=== PATIENT | male | born 1945 | race Caucasian/White ===

== ENCOUNTER 2018-03-01 13:57 | Observation (INO) | payer OTHER ==
[2018-03-01 14:32] LABS: PLATELET COUNT 189 10^3/uL (150-400)
--- NOTE | 2018-03-01 14:37 | EDPHY ---
HPI/HX/ROS/PE/MDM Narrative: CHIEF COMPLAINT: Chest pain HISTORY OF PRESENT ILLNESS: This patient is a 72 year old male with history of hyperlipidemia, type II diabetes mellitus arriving via private vehicle complaining of chest pain. This morning around 6am, he woke with pain in his left chest just under his ribcage. This is similar to prior instances he calls "muscle spasm" in his diaphragm. These usually resolve with deep breaths. Today, the discomfort has been ongoing for 8 hours. If he relaxes, the relieves slightly but does not completely resolve. When he takes a deep breath, the pain is exacerbated. It is localized to one area and does not radiate. No nausea or vomiting. He took four 81mg ASA prior to coming to the emergency department. The patient follows up at [facility] for his hyperlipidemia and is aware of increased risk of cardiac events given his medical history and became concerned regarding the persistent discomfort. He denies any history of clotting disorders in himself or his family. No fever, chills, shortness of breath, diaphoresis, palpitations, vomiting, diarrhea, urinary complaints, headache, lightheadedness. The patient reports he frequently takes long hikes at elevation without difficulty. It has been about 15 years since his last stress test. REVIEW OF SYSTEMS: A comprehensive 10 system review of systems is otherwise negative aside from elements mentioned in the history of present illness and medical decision making. PAST MEDICAL HISTORY: Hyperlipidemia, diabetes mellitus type II, SOCIAL HISTORY: . at bedside. Retired. Does not abuse tobacco, drugs, or alcohol. VITAL SIGNS: Reviewed by me GENERAL: Well-developed, well-nourished, resting comfortably in no respiratory distress. HEENT: Atraumatic. Eyes: No icterus, no injection. Mouth: moist mucous membranes. No erythema or lesions. Neck: supple with no adenopathy. LUNGS: Clear to auscultation bilaterally, no wheezes, rhonchi or rales. CARDIAC: Regular rate and rhythm, no rubs, murmurs or gallops. ABDOMEN: Soft, nontender, nondistended, bowel sounds normal. BACK: No CVA tenderness. EXTREMITIES: No trauma. No edema. Range of motion is normal throughout. NEURO: Alert and oriented, grossly nonfocal. SKIN: Warm and dry, no rash. PSYCHIATRIC: Normal mentation, no agitation. Portions of this note were transcribed by a medical reviewer. I personally performed a history, physical exam, medical decision making, and confirmed accuracy of information the transcribed note. ED Course: 72 y/o male presents with left-sided chest discomfort onset upon waking this morning. Exam largely unremarkable. Plan for EKG, chest x-ray, labs including CBC, chemistries, troponin, d-dimer. 12-LEAD EKG: Please see the full report in [facility]. My interpretation: Normal sinus rhythm 14:25 Trop 0.00 14:46 Reviewed CXR, negative for acute processes. D-dimer elevated at 1.11. Plan for CTA to rule out PE or other acute processes. 15:[address] Higuera, radiologist. CTA negative for PE. Incidental findings including evidence of CAD noted above in radiologist report. 16:00 Reassessed patient. Discussed imaging results. Discussed admission based on patient's cardiac risk factors and ongoing symptoms. He is amenable to this. 16:43 Spoke with hospitalist service. Dr. Hawkins accepts admission for left lower chest discomfort, hypercholesterolemia. MDM: After history and physical examination, the differential for chest pain was considered, including but not limited to, myocardial ischemia, acute coronary syndrome, pulmonary embolus, chest wall pain, pleural inflammation, gastrointestinal causes, and pulmonary infectious causes. - Data Points Imaging Results: Chest X-Ray 03/01/18 14:24 Impression: No evidence for acute cardiopulmonary abnormality. Chronic findings , as above. Dictated By: Junito Higuera MD Chest/Thorax CTA 03/01/18 14:58 Impression: 1. No evidence of thrombopulmonary embolic disease. 2. 3.1-cm mass right thyroid gland. Recommend ultrasound-guided fine needle aspiration. 3. 12.5-cm exophytic renal cortical cyst midpole right kidney incompletely visualized. Smaller renal cortical cyst off the superior pole of the left kidney. 4. Evidence of atherosclerotic disease in the coronary arteries. 5. Incidental aberrant right brachiocephalic artery. Results called and discussed with Sadia Greene MD on March 01, 2018 at 1553 hours. Dictated By: Junito Higuera MD Imaging: Discussed imaging studies w/ train caller Radiologist, I viewed and interpreted images myself Laboratory Results: Laboratory Results 03/01/18 14:10 03/01/18 14:10 Medications Given: Discontinued Medications Aspirin Buffered (Aspirin Ec) 81 mg PO DAILY [facility] Stop: 08/29/18 08:59 Last Admin: 03/02/18 08:25 Dose: 81 mg Colesevelam HCl (Welchol) 1,875 mg PO BIDMEAL [facility] Stop: 08/29/18 07:59 Last Admin: 03/02/18 08:25 Dose: 1,875 mg Ezetimibe (Zetia) 10 mg PO HS [facility] Stop: 08/28/18 20:59 Last Admin: 03/01/18 21:22 Dose: 10 mg Ferrous Sulfate (Ferrous Sulfate) 325 mg PO TID [facility] Stop: 08/29/18 08:59 Last Admin: 03/02/18 11:08 Dose: Not Given Glipizide (Glucotrol Xl) 10 mg PO DAILY [facility] Stop: 08/29/18 08:59 Last Admin: 03/02/18 11:09 Dose: Not Given Influenza Virus Vaccine Quadrival (Flulaval Quad [id number] (6mo+)) 0.5 ml IM .ONCE ONE Stop: 03/02/18 12:40 Last Admin: 03/02/18 13:28 Dose: 0.5 ml Insulin Human Lispro (Humalog Lispro) 0 unit SC TIDMEAL [facility] PRN Reason: Protocol Stop: 08/28/18 17:59 Last Admin: 03/01/18 18:45 Dose: Not Given Levothyroxine Sodium (Synthroid) 137 mcg PO DAILY06 [facility] Stop: 08/29/18 05:59 Last Admin: 03/02/18 05:41 Dose: 137 mcg Magnesium Oxide (Magnesium Oxide) 400 mg PO TID [facility] Stop: 08/28/18 21:59 Last Admin: 03/02/18 08:25 Dose: 400 mg Miscellaneous Medication (Ferrous Gluconate [Ferrous Gluconate]) 324 mg PO TID [facility] Stop: 08/28/18 21:59 Last Admin: 03/02/18 08:30 Dose: 324 mg Miscellaneous Medication (Glucotrol Xl 10 Mg (*)) 10 mg PO DAILY [facility] Stop: 08/29/18 08:59 Last Admin: 03/02/18 08:30 Dose: 10 mg Miscellaneous Medication (Jentadueto 2.5 Mg-1000 Mg Tab) 1 tab PO BIDMEAL [facility] Stop: 08/29/18 07:59 Last Admin: 03/02/18 08:31 Dose: Not Given Morphine Sulfate (Morphine) 2 mg IVP EDNOW ONE Stop: 03/01/18 16:50 Last Admin: 03/01/18 17:17 Dose: Not Given Niacin (Niaspan) 2,000 mg PO HS [facility] Stop: 08/28/18 20:59 Last Admin: 03/01/18 21:22 Dose: 2,000 mg Rosuvastatin Calcium (Crestor) 20 mg PO HS [facility] Stop: 08/28/18 20:59 Last Admin: 03/01/18 21:22 Dose: 20 mg Timolol Maleate (Timoptic 0.5%) 1 drops LEFTEYE DAILY [facility] Stop: 08/29/18 08:59 Last Admin: 03/02/18 08:47 Dose: 1 drop Point of Care Test Results: Chemistry 03/01/18 14:16 POC Troponin I 0.00 ng/mL ng/mL (0.00-0.08) General Time Seen by Provider: 03/01/18 14:15 Initial Vital Signs: Initial Vital Signs Temperature (C) 36.5 C 03/01/18 14:00 Heart Rate 73 03/01/18 14:00 Respiratory Rate 16 03/01/18 14:00 Blood Pressure 184/92 H 03/01/18 14:00 O2 Sat (%) 97 03/01/18 14:00 O2 Delivery Mode Room Air Allergies/Adverse Reactions: codeine Allergy (Verified 03/01/18 13:59) Home Medications: Medication Instructions Recorded Ascorbic Acid [Vitamin C 500 mg 500 mg PO DAILY@1800 03/01/18 (*)] Aspirin EC [Aspirin EC 81 mg (*)] 81 mg PO DAILY 03/01/18 Colesevelam HCl [Welchol (*)] 1,875 mg PO BIDMEAL 03/01/18 Ergocalciferol (Vitamin D2) 50,000 unit PO Q28D 03/01/18 [Vitamin D2] Evolocumab [Repatha Sureclick] 140 mg IJ Q14D 03/01/18 Ezetimibe [Zetia 10 MG (*)] 10 mg PO HS 03/01/18 Ferrous Gluconate 324 mg PO TID 03/01/18 Glucotrol XL 10 MG (*) 10 mg PO DAILY 03/01/18 Herbals/Supplements -Info Only 1 ea PO DAILY 03/01/18 Jentadueto 2.5 mg-1000 mg Tab 1 tab PO BIDMEAL 03/01/18 Levothyroxine [Synthroid 137 mcg 137 mcg PO DAILY06 03/01/18 (*)] Magnesium Oxide [Magnesium] 400 mg PO TID 03/01/18 Niacin ER [Niaspan 1000 mg (*)] 2,000 mg PO HS 03/01/18 Rosuvastatin Calcium [Crestor 20mg 20 mg PO HS 03/01/18 (*)] Timolol 0.5% [TIMOPTIC 0.5% (*)] 1 drops LEFTEYE DAILY 03/01/18 Departure - Departure Disposition: [facility] Clinical Impression: Chest discomfort, Hypercholesteremia Condition: Good Report Scribed for: Sadia Greene Report Scribed by: Hoa Feldman Date of Report: 03/01/18 Time of Report: 14:37
[2018-03-01] MEDS ORDERED: IOPAMIDOL (ISOVUE 370) 100 ML BTL IV ONE (15:00)
[2018-03-01] MEDS ORDERED: ONDANSETRON 4 MG/2 ML VIAL IVP PRN (17:14)
[2018-03-01] MEDS ORDERED: ACETAMINOPHEN 325 MG TAB PO PRN (17:14)
[2018-03-01] MEDS ORDERED: NITROGLYCERIN 0.4 MG BTL SL PRN (17:14)
--- NOTE | 2018-03-01 17:19 | PDGENHP ---
History and Physical - Chief Complaint chest pain - History of Present Illness 72yo M with familial hypertriglyceridemia, T2DM presents with left sided chest pain. First noticed it around 6am after waking up but it did not wake him up from sleep. Maximum intensity only a 3-4/10. Sharp pain, doesn't radiate, no associated nausea, dyspnea, diaphoresis. Doesn't change with exertion or position. Worsens with inspiration. No rash on chest, not worse with palpation. No palpitations, leg swelling, presyncope/syncope. He has been doing quite a bit of home renovation and hasn't had any chest pain with these activities. Has had similar symptoms before but usually goes away with inspiration. Decided to come to ED after it didn't go away throughout the day. This pain has now resolved. In the ED, had non-ischemic ECG and troponin. D-dimer elevated so CTA ordered which was negative for PE. Given his risk factors, he is being admitted for ACS rule out and likely stress testing. Case discussed with ED physician Sadia Greene. History Information - Allergies/Home Medication List Allergies/Adverse Reactions: codeine Allergy (Verified 03/01/18 13:59) Home Medications: Colesevelam HCl 03/01/18 [Last Taken Unknown] Crestor 03/01/18 [Last Taken Unknown] Evolocumab [Repatha Sureclick] 03/01/18 [Last Taken Unknown] Glucotrol Xl 03/01/18 [Last Taken Unknown] Jentadueto 2.5 mg-1000 mg Tab 03/01/18 [Last Taken Unknown] Niacin 03/01/18 [Last Taken Unknown] Synthroid 137 mcg (*) 03/01/18 [Last Taken Unknown] Timolol Maleate 03/01/18 [Last Taken Unknown] Vitamin D2 03/01/18 [Last Taken Unknown] Zetia 10 MG (*) 03/01/18 [Last Taken Unknown] I have personally reviewed and updated: family history, medical history, social history, surgical history - Past Medical History Additional medical history: familial hypertriglyceridemia (followed at [facility], most recent LDL 15), T2DM (diagnosed about 10 years ago, never on insulin), hypothyroidism - Surgical History Reports: no pertinent surgical hx - Family History Additional family history: father - [place] at 75, uncle - [place] in late 50s, mother - CVA - Social History Smoking Status: Never smoked Alcohol Use: Rarely Drug Use: None Additional social history: Retired. Lives with . Splits time living in [place] and [place]. Has been in [place] since December. Enjoys [place] hunting. Review of Systems Review of Systems: ROS: 10pt was reviewed & negative except for what was stated in HPI & below Physical Exam Physical Exam: Temp Pulse Resp BP Pulse Ox 36.5 C 63 18 156/94 H 97 03/01/18 14:00 03/01/18 16:53 03/01/18 16:53 03/01/18 16:53 03/01/18 16:53 Constitutional: no apparent distress, appears nourished, not in pain Eyes: PERRL, anicteric sclera, EOMI Ears, Nose, Mouth, Throat: moist mucous membranes, hearing normal, ears appear normal, no oral mucosal ulcers Cardiovascular: regular rate and rhythym, no murmur, rub, or gallop, pulses symmetric bilaterally, No JVD, No carotid bruit, No edema Respiratory: no respiratory distress, no rales or rhonchi, clear to auscultation Gastrointestinal: normoactive bowel sounds, soft, non-tender abdomen, no palpable masses Skin: warm, normal color, no rashes or abrasions, no fluctuance, no induration, No mottled Musculoskeletal: full muscle strength, no muscle tenderness, normal joint ROM, no joint effusions Neurologic: AAOx3 Psychiatric: interacting appropriately, not anxious, not encephalopathic, thought process linear Lab Data & Imaging Review 03/01/18 14:10 03/01/18 14:10 WBC 7.78 10^3/uL (3.80-9.50) 03/01/18 14:10 RBC 4.20 10^6/uL (4.40-6.38) L 03/01/18 14:10 Hgb 13.4 g/dL (13.7-17.5) L 03/01/18 14:10 Hct 39.8 % (40.0-51.0) L 03/01/18 14:10 MCV 94.8 fL (81.5-99.8) 03/01/18 14:10 MCH 31.9 pg (27.9-34.1) 03/01/18 14:10 MCHC 33.7 g/dL (32.4-36.7) 03/01/18 14:10 RDW 13.4 % (11.5-15.2) 03/01/18 14:10 Plt Count 189 10^3/uL (150-400) 03/01/18 14:10 MPV 8.9 fL (8.7-11.7) 03/01/18 14:10 Neut % (Auto) 67.9 % (39.3-74.2) 03/01/18 14:10 Lymph % (Auto) 22.5 % (15.0-45.0) 03/01/18 14:10 Hayes % (Auto) 8.2 % (4.5-13.0) 03/01/18 14:10 Eos % (Auto) 1.0 % (0.6-7.6) 03/01/18 14:10 Baso % (Auto) 0.3 % (0.3-1.7) 03/01/18 14:10 Nucleat RBC Rel Count 0.0 % (0.0-0.2) 03/01/18 14:10 Absolute Neuts (auto) 5.28 10^3/uL (1.70-6.50) 03/01/18 14:10 Absolute Lymphs (auto) 1.75 10^3/uL (1.00-3.00) 03/01/18 14:10 Absolute Monos (auto) 0.64 10^3/uL (0.30-0.80) 03/01/18 14:10 Absolute Eos (auto) 0.08 10^3/uL (0.03-0.40) 03/01/18 14:10 Absolute Basos (auto) 0.02 10^3/uL (0.02-0.10) 03/01/18 14:10 Absolute Nucleated RBC 0.00 10^3/uL (0-0.01) 03/01/18 14:10 Immature Gran % 0.1 % (0.0-1.1) 03/01/18 14:10 Immature Gran # 0.01 10^3/uL (0.00-0.10) 03/01/18 14:10 D-Dimer 1.11 ug/mLFEU (0.00-0.50) H 03/01/18 14:10 Sodium 139 mEq/L (135-145) 03/01/18 14:10 Potassium 4.2 mEq/L (3.3-5.0) 03/01/18 14:10 Chloride 104 mEq/L (97-110) 03/01/18 14:10 Carbon Dioxide 28 mEq/l (22-31) 03/01/18 14:10 Anion Gap 7 mEq/L (8-16) L 03/01/18 14:10 BUN 15 mg/dL (7-23) 03/01/18 14:10 Creatinine 1.0 mg/dL (0.7-1.3) 03/01/18 14:10 Estimated GFR > 60 03/01/18 14:10 Glucose 124 mg/dL (70-100) H 03/01/18 14:10 Calcium 9.8 mg/dL (8.5-10.4) 03/01/18 14:10 POC Troponin I 0.00 ng/mL (0.00-0.08) 03/01/18 14:16 Visualized and Interpreted imaging results: Yes Interpretation: CXR: no infiltrate or pleural effusion, tortuous aorta, no widened mediastinum (interpreted by me) EKG additional interpertation: ECG: NSR, good R wave progression, no q waves, no ST-T segment changes to suggest ischemia (interpreted by me) Assessment & Plan Assessment: 72yo M with familial hypertriglyceridemia, T2DM presents with left sided chest pain who is being admitted for further evaluation. Plan: #Acute chest pain: Intermediate risk of coronary disease requiring further risk stratification. No PE or aortic pathology on imaging. Not consistent with GI etiology. - Serial troponin/ecg per protocol - Ordered exercise stress test if above remains negative - Telemetry - Check lipids, A1c #Familial hypertriglyceridemia: Followed at [facility] - Continue home meds once med rec completed #T2DM: - SSI with achs BG checks - Resume orals once med rec done Diet: cardiac VTE ppx: SCDs Code: full Dispo: Admit under observation for above work up.
[2018-03-01] MEDS ORDERED: D50W 25 GM/50 ML SYR IVP PRN (17:27)
[2018-03-01] MEDS ORDERED: INSULIN LISPRO 100 UNIT/ML SC SCH (18:00)
[2018-03-01] MEDS ORDERED: EZETIMIBE 10 MG TAB PO SCH (21:00)
[2018-03-01] MEDS ORDERED: ROSUVASTATIN CALCIUM 20 MG TAB PO SCH (21:00)
[2018-03-01] MEDS ORDERED: NIACIN ER 1000 MG TAB.ER PO SCH (21:00)
[2018-03-01] MEDS: MAGNESIUM OXIDE 400 MG TAB PO SCH (21:22)
[2018-03-01] MEDS: Ferrous Gluconate [Ferrous Gluconate] 324 MG PO SCH (21:57)
[2018-03-02] MEDS ORDERED: LEVOTHYROXINE 137 MCG TAB PO SCH (06:00)
[2018-03-02] MEDS ORDERED: JENTADUETO PO SCH (08:00)
[2018-03-02] MEDS ORDERED: COLESEVELAM HCL 625 MG TAB PO SCH (08:00)
[2018-03-02] MEDS: MAGNESIUM OXIDE 400 MG TAB PO SCH (08:25)
[2018-03-02] MEDS: Ferrous Gluconate [Ferrous Gluconate] 324 MG PO SCH (08:30)
[2018-03-02] MEDS ORDERED: FERROUS SULFATE 325 MG TAB PO SCH (09:00)
[2018-03-02] MEDS ORDERED: GLUCOTROL 10 MG PO SCH (09:00)
[2018-03-02] MEDS ORDERED: TIMOLOL 0.5% 15 ML OPHT.BTL LEFTEYE SCH (09:00)
[2018-03-02] MEDS ORDERED: ASPIRIN EC 81 MG TAB PO SCH (09:00)
[2018-03-02] MEDS ORDERED: REGADENOSON 0.4 MG/5 ML SYR IVP ONE (09:55)
--- NOTE | 2018-03-02 11:11 | CPR ---
DATE OF PROCEDURE: 03/02/2018 CARDIOPULMONARY REPORT PROCEDURE: Exercise nuclear stress test. INDICATION: The patient is a 72-year-old male who woke with left-sided chest discomfort. It has bee n persistent for the last 8 hours and is aggravated by lying on his left side. It is also worse with deep breaths. His risk factors for coronary artery disease include familial hypercholesterolemia an d diabetes. He also has a family history of coronary artery disease with multiple family members hav ing cardiac events in their late 50s, 60s, and 70s. PROCEDURE IN DETAIL: Consent was obtained, and the patient was placed on continuous telemetry. His resting EKG revealed normal sinus rhythm with a heart rate of 85. He had diffuse ST-T wave changes, which were nonspecific. The patient walked on the treadmill for 9 minutes and remained in normal sinus rhythm throughout the study. He had nonspecific ST-T changes, which were consistent with his baseline EKG throughout the s tudy as well. There were no ST-T wave changes to suggest ischemia. He denied any chest discomfort w ith exercise. His blood pressure at rest was 128/70 and peaked at 164/80. His blood pressure and heart rate return ed to baseline within 2 minutes of recovery. PLAN: Await nuclear images. /[id number]/MODL
[2018-03-02 11:58] VITALS: BP 124/72
--- NOTE | 2018-03-02 12:33 | ASDISCHSUM ---
Discharge Information Plan Status:Home with No Needs Medically Cleared to Leave:03/02/2018 Discharge Date:03/02/2018 CM D/C Disposition:Home, Routine, Self-Care ADT D/C Disposition: Projected Discharge Date:03/02/2018 Transportation at D/C:Family Discharge Delay Reason: Follow-Up Date:03/02/2018 Discharge Slot: Final Diagnosis:chest pain Placement Information Patient Contact Information Contact Name:ZAHRAA Relationship: [address] Work Phone: [facility] Phone: State/Zip Code:[place] [address] Email: Financial Information Financial Class:Medicare Primary Plan Desc:MEDICARE OUTPATIENT Primary Plan Number:[id number] Secondary Plan Desc:[facility] Secondary Plan Number:[id number] Assessment Information LACE LACE Length of stay for Answers: 1 day current admission Acuity / Level of Answers: No Care: Did the patient have an inpatient admission? Comorbidities - select Answers: Diabetes (uncontrolled or all that apply controlled) Opioid dependence / Chronic pain Other Notes: HLD; Hypothyroidism # of Emergency department Answers: 1-2 visits in the last 6 months Score: 8 Date Signed: 03/02/2018 12:30 PM Electronically Signed By:Zaira Street Case Management Discharge Plan Note Case Management Discharge Discharge Order Complete? Answers: Yes Patient to Obtain Answers: via Family Medications Transportation Arranged Answers: Family/Friends Family Notified Answers: Yes Notes: by pt Discharge Comments Notes: Spoke with pt in the room who confirmed that will be available to provide transportation and pt is comfortable discharging independently. No further CM need noted at this time. Date Signed: 03/02/2018 12:32 PM Electronically Signed By:Zaira Street Intervention Information
--- NOTE | 2018-03-02 12:34 | ASMTLACE ---
LACE Length of stay for Answers: Less than 1 day current admission Acuity / Level of Answers: No Care: Did the patient have an inpatient admission? Comorbidities - select Answers: Diabetes (uncontrolled or all that apply controlled) Opioid dependence / Chronic pain Other Notes: HLD; Hypothyroidism # of Emergency department Answers: 1-2 visits in the last 6 months Score: 7 Date Signed: 03/02/2018 12:33 PM Electronically Signed By:Zaira Street
--- NOTE | 2018-03-02 14:39 | CPEKG ---
Test Reason : OPEN Blood Pressure : / mmHG Vent. Rate : 053 BPM Atrial Rate : 053 BPM P-R Int : 125 ms QRS Dur : 087 ms QT Int : 455 ms P-R-T Axes : 041 007 046 degrees QTc Int : 428 ms Sinus rhythm Borderline T wave abnormalities Confirmed by Graciela Moyer ([id number]) on 03/02/2018 2:39:37 PM Referred By: Confirmed By:Graciela Moyer
--- NOTE | 2018-03-02 16:33 | GDS ---
DISCHARGE DIAGNOSES: 1. Atypical chest pain, resolved. 2. Familial hypertriglyceridemia. 3. Diabetes mellitus, type 2. 4. Right thyroid mass. CONSULTANTS: None. IMAGING/PROCEDURES: 1. CT angiogram of the chest was negative for pulmonary embolism, though incidentally, a 3 cm right thyroid mass is seen, as well as a 12.5 cm exophytic renal cortical cyst in the mid pole of the right kidney and a smaller renal cortical cyst off the superior pole of the left kidney, as well as evidence of atherosclerotic disease in the coronary arteries. 2. Nuclear medicine myocardial perfusion scan was negative for evidence of myocardial ischemia. HISTORY: For details, please see history and physical dated March 01, 2018. In brief, the patient is a 72-year-old male with history of diabetes and familial hypertriglyceridemia who presented to the emergency department with chest pain. He was admitted for further management. HOSPITAL COURSE: Patient was admitted to the cardiac telemetry unit. He had negative troponins x3. His EKG was nonischemic. He underwent a treadmill stress test with nuclear medicine imaging, which was negative for ischemia. It is thought his chest pain may be musculoskeletal in nature. He does, however, have evidence of coronary disease on his CT scan and thus would recommend continuing aspirin therapy, as well as his cholesterol-lowering medications. On the day of discharge, the patient is chest pain-free, hemodynamically stable with blood pressure 124/72, heart rate 78, respiratory rate 13. He is 95% on room air. Incidentally, the patient was noted to have a right-sided 3 cm thyroid mass. His TSH and free T4 are within normal limits. I discussed this with the patient and referred him to Dr. Donnelly, entrepreneurship program director, to discuss undergoing FNA biopsy here versus home in [place] in March. DISPOSITION: Patient is discharged home in stable condition. DISCHARGE MEDICATIONS: Please see [email or web address] for completed outpatient medication list. There are no new medications on discharge. He will continue all other outpatient medications as previously prescribed. FOLLOWUP: Patient will followup with primary care in April in [place]. He will also see his kidney doctor and he was informed about the 12 cm renal cyst. He is referred to Dr. Genevieve Donnelly to discuss FNA for his right thyroid mass. Alternatively, that could be pursued back in [place]. /[id number]/MODL MTDD
[2018-03-02] MEDS ORDERED: ASCORBIC ACID 500 MG TAB PO SCH (18:00)
== END 2018-03-02 14:11 | disposition home or self-care (01) ==
LOC: F2W 17:43
PROVIDERS: ADMIT Internal Medicine; ATTEND Hospitalist
DX: R07.9 Chest pain, unspecified (principal); E04.1 Nontoxic single thyroid nodule; N28.1 Cyst of kidney, acquired; Q25.8 Other congenital malformations of other great arteries; I70.90 Unspecified atherosclerosis; E78.1 Pure hyperglyceridemia; E11.9 Type 2 diabetes mellitus without complications; E03.9 Hypothyroidism, unspecified; Z82.49 Family history of ischemic heart disease and other diseases of the circulatory system; Z82.3 Family history of stroke; Z23 Encounter for immunization
CPT/HCPCS: 71046; 71275; 78452; 90686; 93005; 93017; 99285; A9500; G0008; G0378; Q9967; 84484-PO; J2270; J2785